=== PATIENT | female | born 1970 | race Asian ===

== ENCOUNTER → 2016-10-15 | Outpatient (CLI) | payer OTHER ==
--- NOTE | ~2016-10-15 | MY11 ---
[facility] A Service [facility] RADIOLOGY TEXT RESULTS PATIENT: BEAU MARROQUIN LOCATION: [facility] : [birth year] UNIT #: [id number] AGE: [address]: Narda Dockery MD SEX: F ORDER DR: [id number] [facility]. [place], [place] [address] [id number] O MR#: [id number] Acc #: [id number] NAME: BEAU MARROQUIN : 1970 SEX: F STUDY DATE/TIME: 10/15/2016 10:19 UNIT: [facility] ROOM: STUDY DESCRIPTION: MY Mammogram Screening Dig Marquise Attending Physician: Narda Dockery M.D. Referring Physician: Narda Dockery M.D. Ordering Physician: Narda Dockery M.D. Primary Care Physician: Narda Dockery M.D. MEDICAL IMAGING REPORT This report is preliminary unless electronic signature is present EXAM Bilateral digital screening mammogram with CAD, 10/15/2016 INDICATION 46-year-old female for routine screening. No reported problems and no personal or family history of breast cancer. No surgeries. TECHNIQUE CC and MLO views of the breasts were obtained and reviewed with an FDA-approved CAD device. COMPARISON 01/03/2015, 04/27/2013, 09/24/2011 FINDINGS Breast parenchyma is composed of scattered fibroglandular densities. The pattern is unchanged. There is no new dominant nodule mass or suspicious cluster of microcalcifications. Benign calcifications are present. IMPRESSION Benign screening mammogram. One year followup recommended. Patients over the age of 40 are entered into a reminder system with target due date for the next mammogram. A result letter will also be sent to the patient. BIRADS: 2 Benign Finding Dictated by... Abdirashid Leos M.D. THIS IS AN ELECTRONICALLY VERIFIED REPORT Abdirashid Leos M.D. at 10/15/2016 3:39 PM [facility] A Service of [facility] RADIOLOGY TEXT RESULTS PATIENT: BEAU MARROQUIN LOCATION: [facility] #: [id number] : [birth year] UNIT #: [id number] AGE: [address]: Narda Dockery MD SEX: F ORDER DR: RENETTA/efrmin TD: 10/15/2016 14:17 JOB #: [id number] MEDICAL IMAGING REPORT COPY
== END | disposition home or self-care (01) ==
LOC: CWCC 10:05
DX: Z12.31 Encounter for screening mammogram for malignant neoplasm of breast (principal)
CPT/HCPCS: G0202